=== PATIENT | male | born 1955 | race Caucasian/White ===

== ENCOUNTER 2019-04-06 17:57 | Emergency (ER) | payer MEDICARE ==
[2019-04-06 18:45] LABS: Appearance,Urine Clear (Clear); Bilirubin,Urine Negative (Negative); Blood,Urine Negative (Negative); Color,Urine Yellow; Glucose,Urine (UA) Negative (Negative); Ketones,Urine Trace (Negative); Leukocyte Esterase,Urine Negative (Negative); Nitrite,Urine Negative (Negative); PH, Urine 6.5 (5.0-8.0); Protein,Urine Trace (Negative); Specific Gravity,Urine 1.025 (1.001-1.035); Urobilinogen,Urine <2.0 mg/dL (<2.0)
[2019-04-06] MEDS ORDERED: ACET/COD 300 MG/30 MG STARTER PACK 6 TAB BTL PO STA (18:50)
--- NOTE | 2019-04-06 18:52 | ED ---
Back Pain HPI - General Chief Complaint: Back Pain/Injury Stated Complaint: rib injury Time Seen by Provider: 04/06/19 18:11 Source: patient, RN notes reviewed, old records reviewed Limitations: no limitations - History of Present Illness Initial Comments: Patient is a 64-year-old male presents today for evaluation for concern for left-sided rib pain, worse with taking a deep breath. Patient reports that on Saturday he tripped over a trailer hitch, landing on his left ribs. He reports he heard a crunch. He's had pain with certain movements and taking a deep breath. Patient denies any abdominal pain. Denies any head injury or neck injury. Patient is not on blood thinner. - Related Data Previous Rx's Medication Instructions Recorded HYDROcodone/APAP 5-325MG [[place] 1 tab PO Q4HR PRN 3 Days #18 tab 04/06/19 5-325] Ibuprofen 600 mg PO TID #20 tablet 04/06/19 Allergies Allergy/AdvReac Type Severity Reaction Status Date / Time No Known Allergies Allergy Verified 04/06/19 18:01 Review of Systems ROS Statement: Those systems with pertinent positive or pertinent negative responses have been documented in the HPI. ROS Other: All systems not noted in ROS Statement are negative. Past Medical History Past Medical History: GERD/Reflux, Hypertension History of Any Multi-Drug Resistant Organisms: None Reported Additional Past Surgical History / Comment(s): eye Past Psychological History: No Psychological Hx Reported Smoking Status: Former smoker Past Alcohol Use History: Rare Past Drug Use History: None Reported General Exam - General Exam Comments Initial Comments: 64-year-old male. Alert and oriented 3. No distress. Limitations: no limitations General appearance: alert, in no apparent distress Head exam: Present: atraumatic, normocephalic, normal inspection Eye exam: Present: normal appearance, PERRL, EOMI. Absent: scleral icterus, conjunctival injection, periorbital swelling ENT exam: Present: normal exam, mucous membranes moist Neck exam: Present: normal inspection. Absent: tenderness, meningismus, lymphadenopathy Respiratory exam: Present: normal lung sounds bilaterally. Absent: respiratory distress, wheezes, rales, rhonchi, stridor Cardiovascular Exam: Present: regular rate, normal rhythm, normal heart sounds, other (Patient has tenderness over multiple left lower ribs.). Absent: systolic murmur, diastolic murmur, rubs, gallop, clicks GI/Abdominal exam: Present: soft, normal bowel sounds. Absent: distended, tenderness, guarding, rebound, rigid Extremities exam: Present: normal inspection, full ROM, normal capillary refill. Absent: tenderness, pedal edema, joint swelling, calf tenderness Back exam: Present: normal inspection Neurological exam: Present: alert, oriented X3, CN II-XII intact Psychiatric exam: Present: normal affect, normal mood Course Vital Signs 04/06/19 04/06/19 04/06/19 18:01 19:46 21:44 Temperature 99 F 98.7 F Pulse Rate 18 L 105 H 80 Respiratory 98 H 18 18 Rate Blood Pressure 191/101 152/88 169/95 O2 Sat by Pulse 96 96 96 Oximetry Medical Decision Making - Medical Decision Making 64 year old male with fall on L ribs. Patient CXR shows evidence of rib fractures 5-9, non dispalced. Given pain medication. Discussed concern for further injury from fall, therefore lab work obtaiend and CT scan completed. Labs were reviewed and unremarkable. Patient CT shows no traumatic squella besides non displaced rib fractures. Patient given incentive spirometer. Patient advised close follow up return parameters. DC with pain medication. - Lab Data Result diagrams: 04/06/19 19:15 04/06/19 19:15 Lab Results 04/06/19 04/06/19 04/06/19 Range/Units 18:35 19:15 19:15 WBC 10.7 H (3.8-10.6) k/uL RBC 5.22 (4.30-5.90) m/uL Hgb 16.8 (13.0-17.5) gm/dL Hct 48.4 (39.0-53.0) % MCV 92.7 (80.0-100.0) fL MCH 32.1 (25.0-35.0) pg MCHC 34.6 (31.0-37.0) g/dL RDW 12.8 (11.5-15.5) % Plt Count 197 (150-450) k/uL Neutrophils % 75 % Lymphocytes % 14 % Monocytes % 6 % Eosinophils % 2 % Basophils % 1 % Neutrophils # 8.0 H (1.3-7.7) k/uL Lymphocytes # 1.5 (1.0-4.8) k/uL Monocytes # 0.7 (0-1.0) k/uL Eosinophils # 0.2 (0-0.7) k/uL Basophils # 0.1 (0-0.2) k/uL PT (9.0-12.0) sec INR (<1.2) APTT (22.0-30.0) sec Sodium 139 (137-145) mmol/L Potassium 4.2 (3.5-5.1) mmol/L Chloride 105 (98-107) mmol/L Carbon Dioxide 24 (22-30) mmol/L Anion Gap 10 mmol/L BUN 16 (9-20) mg/dL Creatinine 1.11 (0.66-1.25) mg/dL Est GFR (CKD-EPI)AfAm 80 (>60 ml/min/1.73 sqM) Est GFR (CKD-EPI)NonAf 70 (>60 ml/min/1.73 sqM) Glucose 132 H (74-99) mg/dL Calcium 8.7 (8.4-10.2) mg/dL Total Bilirubin 1.0 (0.2-1.3) mg/dL AST 41 (17-59) U/L ALT 26 (4-49) U/L Alkaline Phosphatase 55 (38-126) U/L Total Protein 7.8 (6.3-8.2) g/dL Albumin 4.7 (3.5-5.0) g/dL Urine Color Yellow Urine Appearance Clear (Clear) Urine pH 6.5 (5.0-8.0) Ur Specific [place] 1.025 (1.001-1.035) Urine Protein Trace H (Negative) Urine Glucose (UA) Negative (Negative) Urine Ketones Trace H (Negative) Urine Blood Negative (Negative) Urine Nitrite Negative (Negative) Urine Bilirubin Negative (Negative) Urine Urobilinogen <2.0 (<2.0) mg/dL Ur Leukocyte Esterase Negative (Negative) 04/06/19 Range/Units 19:15 WBC (3.8-10.6) k/uL RBC (4.30-5.90) m/uL Hgb (13.0-17.5) gm/dL Hct (39.0-53.0) % MCV (80.0-100.0) fL MCH (25.0-35.0) pg MCHC (31.0-37.0) g/dL RDW (11.5-15.5) % Plt Count (150-450) k/uL Neutrophils % % Lymphocytes % % Monocytes % % Eosinophils % % Basophils % % Neutrophils # (1.3-7.7) k/uL Lymphocytes # (1.0-4.8) k/uL Monocytes # (0-1.0) k/uL Eosinophils # (0-0.7) k/uL Basophils # (0-0.2) k/uL PT 10.2 (9.0-12.0) sec INR 0.9 (<1.2) APTT 24.7 (22.0-30.0) sec Sodium (137-145) mmol/L Potassium (3.5-5.1) mmol/L Chloride (98-107) mmol/L Carbon Dioxide (22-30) mmol/L Anion Gap mmol/L BUN (9-20) mg/dL Creatinine (0.66-1.25) mg/dL Est GFR (CKD-EPI)AfAm (>60 ml/min/1.73 sqM) Est GFR (CKD-EPI)NonAf (>60 ml/min/1.73 sqM) Glucose (74-99) mg/dL Calcium (8.4-10.2) mg/dL Total Bilirubin (0.2-1.3) mg/dL AST (17-59) U/L ALT (4-49) U/L Alkaline Phosphatase (38-126) U/L Total Protein (6.3-8.2) g/dL Albumin (3.5-5.0) g/dL Urine Color Urine Appearance (Clear) Urine pH (5.0-8.0) Ur Specific [place] (1.001-1.035) Urine Protein (Negative) Urine Glucose (UA) (Negative) Urine Ketones (Negative) Urine Blood (Negative) Urine Nitrite (Negative) Urine Bilirubin (Negative) Urine Urobilinogen (<2.0) mg/dL Ur Leukocyte Esterase (Negative) - Radiology Data Radiology results: report reviewed There is multiple non displaced rib fracture of 5-9. No pneumothorax. Normal heart. CT Chest abdomen and pelvis shows no traumatic squella, evidence of non displaced rib fracture 6 and 7. Disposition Clinical Impression: Left rib fracture Disposition: HOME SELF-CARE Condition: Good Instructions (If sedation given, give patient instructions): Rib Fracture (ED) Additional Instructions: Patient advised to use incentive spirometry every hour or 2 avoid atelectasis or potentially developing pneumonia. Patient should take the pain medicine as prescribed. Follow-up with your primary care physician. Prescriptions: Ibuprofen 600 mg PO TID #20 tablet HYDROcodone/APAP 5-325MG [[place] 5-325] 1 tab PO Q4HR PRN 3 Days #18 tab PRN Reason: Pain Is patient prescribed a controlled substance at d/c from ED?: Yes If prescribed controlled substance>3 days was MAPS reviewed?: Prescribed <3 Days If opioid is for acute pain is fill amount 7 days or less?: Yes If Rx opioid, was Start Talking consent form obtained?: Yes Referrals: Atiya Hernandez MD [Primary Care Provider] - 1-2 days Time of Disposition: 21:02
--- NOTE | 2019-04-06 18:53 | XR ---
EXAMINATION TYPE: XR ribs LT w pa chest xray DATE OF EXAM: 04/06/2019 COMPARISON: NONE HISTORY: Left rib pain TECHNIQUE: 5 views FINDINGS: Heart and mediastinum are within normal limits. Lungs are clear of infiltrate. There is no pneumothorax. There is minimal linear density left lung base. There are nondisplaced fractures of the left side multiple ribs from 5-9. No significant displacement . IMPRESSION: Numerous posterior lateral left rib fractures. No pneumothorax. Normal heart.
[2019-04-06] MEDS ORDERED: SODIUM CHLORIDE 0.9% 1,000 ML IV ONE (19:06)
[2019-04-06] MEDS ORDERED: SODIUM CHLORIDE 0.9% 1,000 ML IV SCH (19:15)
[2019-04-06] MEDS ORDERED: MORPHINE SULFATE 4 MG/ML SYRINGE IVP STA (19:23)
[2019-04-06 19:26] LABS: Basophils # (A) 0.1 k/uL (0-0.2); Basophils % (A) 1 %; Eosinophils # (A) 0.2 k/uL (0-0.7); Eosinophils % (A) 2 %; HCT 48.4 % (39.0-53.0); HGB 16.8 gm/dL (13.0-17.5); Lymphocytes # (A) 1.5 k/uL (1.0-4.8); Lymphocytes % (A) 14 %; MCH 32.1 pg (25.0-35.0); MCHC 34.6 g/dL (31.0-37.0); MCV 92.7 fL (80.0-100.0); Mean Platelet Volume 7.2; Monocytes # (A) 0.7 k/uL (0-1.0); Monocytes % (A) 6 %; Neutrophils % (A) 75 %; Platelet Count 197 k/uL (150-450); RBC 5.22 m/uL (4.30-5.90); RDW 12.8 % (11.5-15.5); WBC 10.7 k/uL (3.8-10.6)
[2019-04-06 19:36] LABS: Albumin 4.7 g/dL (3.5-5.0); Calcium 8.7 mg/dL (8.4-10.2); Potassium 4.2 mmol/L (3.5-5.1); Total Protein 7.8 g/dL (6.3-8.2)
[2019-04-06 19:46] LABS: INR 0.9 (<1.2); Partial Thromboplastin Time 24.7 sec (22.0-30.0); Prothrombin Time 10.2 sec (9.0-12.0)
[2019-04-06 19:49] VITALS: RESP 18
--- NOTE | 2019-04-06 20:27 | CT ---
EXAMINATION TYPE: CT ChestAbdPelvis w con DATE OF EXAM: 04/06/2019 COMPARISON: None HISTORY: trauma, fall Pain CT DLP: 950 mGycm Automated exposure control for dose reduction was used. CONTRAST: Performed with IV Contrast, patient injected with 100 mL of Isovue 300. Multiple axial sections were obtained from the thoracic inlet to the floor the pelvis with intravenou s contrast. There is no pleural effusion or pneumothorax. There is some patchy atelectasis at the lung bases. Hea rt size is normal. There is no pericardial effusion. There is no mediastinal adenopathy. There are no hilar masses. Liver spleen stomach pancreas gallbladder appear normal. Bile ducts are not dilated. There is no adrenal mass. Kidneys show satisfactory contrast opacification. There is no hydronephrosi s. Ureters are not dilated. There are left-sided renal parapelvic cysts. There is no retroperitoneal adenopathy. Bladder distends smoothly. There is no inguinal hernia. Appendix appears normal. There is no mesenteric edema. There is no ascites or free air. There is no evidence of a bowel obstruction. The thoracic and lumbar vertebra have normal spacing and alignment. Sternum is intact. Bony pelvis is intact. There is no compression fracture. There is no l umbar paraspinal mass. There is 3 mm calculus posterior right kidney. I see no displaced rib fracture . The shoulder joints appear intact. IMPRESSION: Patchy atelectasis at the lung bases. No fracture seen. Nonobstructing right renal calculus. Normal appendix. No evidence of traumatic injury within the abdo men and pelvis.
[2019-04-06 21:45] VITALS: BP 169/95; PULSE 80; TEMP 98.7
== END 2019-04-06 21:45 | disposition home or self-care (01) ==
LOC: EC 17:57
DX: S22.42XA Multiple fractures of ribs, left side, initial encounter for closed fracture (principal); Z87.891 Personal history of nicotine dependence; W01.0XXA Fall on same level from slipping, tripping and stumbling without subsequent striking against object, initial encounter; Y92.009 Unspecified place in unspecified non-institutional (private) residence as the place of occurrence of the external cause
CPT/HCPCS: 99284; 96374; 96361 ×2; 36415; 80053; 85025; 85610; 85730; 81003; 71101; 71260; 74177; J2270; Q9967

== ENCOUNTER 2020-08-28 19:46 | Emergency (ER) | payer MEDICARE ==
[2020-08-28 19:54] VITALS: BP 178/96; PULSE 95; RESP 18; TEMP 98.7
--- NOTE | 2020-08-28 21:01 | ED ---
Back Pain HPI - General Chief Complaint: Back Pain/Injury Stated Complaint: back pain Time Seen by Provider: 08/28/20 20:29 Source: patient Limitations: no limitations - History of Present Illness Initial Comments: 65-year-old male presents to the emergency room with a chief complaint of back pain. States this occurred early this morning when he tripped and hit his back on a boat rail that had a rounded edge. Patient reports she's been having intermittent spasms since the incident. He denies any. Stages throughout the rest of the body. States the pain is reproducible to palpation but it is mild. He denies taking medication to relieve the symptoms. - Related Data Previous Rx's Medication Instructions Recorded HYDROcodone/APAP 5-325MG [[place] 1 tab PO Q4HR PRN 3 Days #18 tab 04/06/19 5-325] Ibuprofen 600 mg PO TID #20 tablet 04/06/19 Cyclobenzaprine [Flexeril] 5 mg PO TID PRN #15 tablet 08/28/20 Allergies Allergy/AdvReac Type Severity Reaction Status Date / Time tobramycin Allergy Swelling Verified 08/28/20 19:54 Review of Systems ROS Statement: Those systems with pertinent positive or pertinent negative responses have been documented in the HPI. ROS Other: All systems not noted in ROS Statement are negative. Past Medical History Past Medical History: GERD/Reflux, Hypertension History of Any Multi-Drug Resistant Organisms: None Reported Past Surgical History: Tonsillectomy Additional Past Surgical History / Comment(s): eye Past Psychological History: No Psychological Hx Reported Smoking Status: Never smoker Past Alcohol Use History: Rare Past Drug Use History: None Reported General Exam Limitations: no limitations General appearance: alert, in no apparent distress Head exam: Present: atraumatic, normocephalic, normal inspection Eye exam: Present: normal appearance, PERRL, EOMI Pupils: Present: normal accommodation ENT exam: Present: normal exam, normal oropharynx, mucous membranes moist Neck exam: Present: normal inspection, full ROM. Absent: tenderness Respiratory exam: Present: normal lung sounds bilaterally. Absent: respiratory distress Cardiovascular Exam: Present: regular rate, normal rhythm, normal heart sounds Extremities exam: Present: normal inspection, full ROM Back exam: Present: normal inspection, full ROM, tenderness, muscle spasm, paraspinal tenderness (Tenderness in the bilateral paraspinal region of the mid thoracic spine). Absent: vertebral tenderness Neurological exam: Present: alert, oriented X3 Psychiatric exam: Present: normal affect, normal mood Skin exam: Present: warm, dry, intact, normal color Course Vital Signs 08/28/20 19:48 Temperature 98.7 F Pulse Rate 95 Respiratory 18 Rate Blood Pressure 178/96 O2 Sat by Pulse 98 Oximetry Medical Decision Making - Medical Decision Making 65-year-old male presents to emergency Department with a chief complaint of back pain. On physical examination, tenderness of bilateral paraspinal region of the mid thoracic spine. Mild tenderness only. X-ray of the thoracic spine reveals some spondylitic changes but no other acute findings. Patient will be discharged with Flexeril and he was advised about the possible side effects of medication. Return parameters were thoroughly discussed with patient is understanding and agreeable. Case discussed with Disposition Clinical Impression: Fall, Back pain Disposition: HOME SELF-CARE Condition: Stable Instructions (If sedation given, give patient instructions): Acute Low Back Pain (ED) Additional Instructions: Please return to the Emergency Department if symptoms worsen or any other concerns. Prescriptions: Cyclobenzaprine [Flexeril] 5 mg PO TID PRN #15 tablet PRN Reason: Muscle Spasm Is patient prescribed a controlled substance at d/c from ED?: No Referrals: Catherine Loza DO [Primary Care Provider] - 1-2 days Time of Disposition: 21:22
--- NOTE | 2020-08-28 21:04 | XR ---
EXAMINATION TYPE: XR thoracic spine complete DATE OF EXAM: 08/28/2020 COMPARISON: NONE HISTORY: Back pain TECHNIQUE: 3 views FINDINGS: The thoracic vertebra have normal alignment. Posterior elements are intact. There is no com pression fracture. I see no bony destructive process. There is degenerative spurring anteriorly throu ghout the thoracic spine. IMPRESSION: Mild multilevel spondylotic changes. No fracture seen.
[2020-08-28] MEDS ORDERED: CYCLOBENZAPRINE 10MG STARTER 3 TAB BTL PO STA (21:27)
== END 2020-08-28 21:43 | disposition home or self-care (01) ==
LOC: EC 19:46
DX: M54.6 Pain in thoracic spine (principal); K21.9 Gastro-esophageal reflux disease without esophagitis; I10 Essential (primary) hypertension; W01.198A Fall on same level from slipping, tripping and stumbling with subsequent striking against other object, initial encounter
CPT/HCPCS: 72072; 99284

== ENCOUNTER 2024-01-23 18:45 | Inpatient (IN) | payer MEDICARE ==
--- NOTE | 2024-01-23 19:19 | ED ---
Neuro HPI - General Source: patient, family Mode of arrival: wheelchair Limitations: no limitations - History of Present Illness Is the patient presenting with stroke symptoms?: Yes Last Known Well Date: 01/23/24 Last Known Well Time: 07:00 Onset/Timin -: hour(s) Last Observed Normal: 07:00 Location: right face, right arm, right leg History of same: No Place: home <Akin Saenz - Last Filed: 01/23/24 19:18> - General Source: RN notes reviewed, old records reviewed <Humberto Hargrove - Last Filed: 01/23/24 20:54> - General Chief Complaint: Neuro Symptoms/Deficit Stated Complaint: stroke symptoms Time Seen by Provider: 01/23/24 18:54 - History of Present Illness Initial Comments: Quick note: This is a 68-year-old male presenting with for right upper and lower extremity numbness and weakness x 12 hours. Patient states symptoms have been ongoing since 7 AM this morning. Patient also endorses some alteration in cognition. Patient denies history of CVA or blood clots. Patient denies use of aspirin, anticoagulants or antiplatelet medications. (Akin Saenz) This is a 68-year-old male who presents to the emergency department because ever since he woke up this morning he has had decreased sensation on the right upper and lower extremity. Patient also states his thoughts were not that clear today and he also has noted at times having a hard time finding words. Patient also complained of some right peripheral vision loss that is very peripheral and is vision. Patient states since he has been here some of the symptoms have improved. Patient states earlier today he found it very hard to coordinate writing and using a utensil with his right hand. Patient states the last time he was normal was 9 PM last night patient denies chest pain or difficulty breathing. Patient states he does have a history of high blood pressure he does not smoke is had no heart disease or lung disease. (Humberto Hargrove) - Related Data Home Medications: Previous Rx's Medication Instructions Recorded HYDROcodone/APAP 5-325MG [[place] 1 tab PO Q4HR PRN 3 Days #18 tab 04/06/19 5-325] Ibuprofen 600 mg PO TID #20 tablet 04/06/19 Cyclobenzaprine [Flexeril] 5 mg PO TID PRN #15 tablet 08/28/20 Allergies/Adverse Reactions: Allergies Allergy/AdvReac Type Severity Reaction Status Date / Time tobramycin Allergy Swelling Verified 01/23/24 18:53 Review of Systems ROS Other: All systems not noted in ROS Statement are negative. <Akin Saenz - Last Filed: 01/23/24 19:18> ROS Other: All systems not noted in ROS Statement are negative. <Humberto Hargrove - Last Filed: 01/23/24 20:54> ROS Statement: Those systems with pertinent positive or pertinent negative responses have been documented in the HPI. General Exam Limitations: no limitations <DanyAkin - Last Filed: 01/23/24 19:18> <Humberto Hargrove - Last Filed: 01/23/24 20:54> - General Exam Comments Initial Comments: Visual Physical Exam Vital signs reviewed General: Well-appearing, nontoxic, no acute distress. Patient is seated in wheelchair Head: Normocephalic, atraumatic Eyes: PERRLA, EOMI ENT: Airway patent Chest: Nonlabored breathing Skin: No visual rash, normal skin tone Neuro: Alert and oriented 3 Musculoskeletal: No gross abnormalities (Akin Saenz) GENERAL: Patient is well-developed and well-nourished. Patient is nontoxic and well- hydrated and is in no acute distress. ENT: Neck is soft and supple. No significant lymphadenopathy is noted. Oropharynx is clear. Moist mucous membranes. Neck has full range of motion without eliciting any pain. EYES: The sclera were anicteric and conjunctiva were pink and moist. Extraocular movements were intact and pupils were equal round and reactive to light. Eyelids were unremarkable. PULMONARY: Unlabored respirations. Good breath sounds bilaterally. No audible rales rhonchi or wheezing was noted. CARDIOVASCULAR: There is a regular rate and rhythm without any murmurs gallops or rubs. Femoral pulses are equal bilaterally ABDOMEN: Soft and nontender with normal bowel sounds. No palpable organomegaly was noted. There is no palpable pulsatile mass. SKIN: Skin is clear with no lesions or rashes and otherwise unremarkable. NEUROLOGIC: Patient is alert and oriented x3. Cranial nerves II through XII are grossly intact. Patient has decreased sensation in the upper extremity and leg. Patient has no cerebellar deficit and has no drift he also has no apparent weakness and I can appreciate this point in time. Patient does have some right peripheral vision loss. MUSCULOSKELETAL: Normal extremities with adequate strength and full range of motion. LYMPHATICS: No significant lymphadenopathy is noted PSYCHIATRIC: Normal psychiatric evaluation. (Humberto Hargrove) Stroke MDM <Akin Saenz - Last Filed: 01/23/24 19:18> - Lab Data Result diagrams: 01/23/24 19:34 01/23/24 19:34 <Humberto Hargrove - Last Filed: 01/23/24 20:54> - Lab Data Lab Results 01/23/24 01/23/24 01/23/24 Range/Units 19:34 19:34 19:34 WBC 9.9 (3.8-10.6) k/uL RBC 5.38 (4.30-5.90) m/uL Hgb 15.4 (13.0-17.5) gm/dL Hct 47.6 (39.0-53.0) % MCV 88.6 (80.0-100.0) fL MCH 28.7 (25.0-35.0) pg MCHC 32.4 (31.0-37.0) g/dL RDW 13.7 (11.5-15.5) % Plt Count 210 (150-450) k/uL MPV 7.2 Neutrophils % 69 % Lymphocytes % 20 % Monocytes % 6 % Eosinophils % 3 % Basophils % 0 % Neutrophils # 6.8 (1.3-7.7) k/uL Lymphocytes # 2.0 (1.0-4.8) k/uL Monocytes # 0.6 (0-1.0) k/uL Eosinophils # 0.3 (0-0.7) k/uL Basophils # 0.0 (0-0.2) k/uL PT 11.8 (10.0-12.5) sec INR 1.1 (<1.2) APTT 24.8 (22.0-30.0) sec Sodium 140 (137-145) mmol/L Potassium 4.0 (3.5-5.1) mmol/L Chloride 103 (98-107) mmol/L Carbon Dioxide 27 (22-30) mmol/L Anion Gap 10 mmol/L BUN 23 H (9-20) mg/dL Creatinine 1.54 H (0.66-1.25) mg/dL Est GFR (CKD-EPI)AfAm 52 (>60 ml/min/1.73 sqM) Est GFR (CKD-EPI)NonAf 45 (>60 ml/min/1.73 sqM) Glucose 117 H (74-99) mg/dL POC Glucose (mg/dL) (70-110) mg/dL POC Glu Marketing Content Coordinator ID Calcium 9.1 (8.4-10.2) mg/dL Total Bilirubin 0.5 (0.2-1.3) mg/dL AST 34 (17-59) U/L ALT 34 (4-49) U/L Alkaline Phosphatase 42 (38-126) U/L Troponin I (0.000-0.034) ng/mL Total Protein 7.6 (6.3-8.2) g/dL Albumin 4.5 (3.5-5.0) g/dL 01/23/24 01/23/24 Range/Units 19:34 19:37 WBC (3.8-10.6) k/uL RBC (4.30-5.90) m/uL Hgb (13.0-17.5) gm/dL Hct (39.0-53.0) % MCV (80.0-100.0) fL MCH (25.0-35.0) pg MCHC (31.0-37.0) g/dL RDW (11.5-15.5) % Plt Count (150-450) k/uL MPV Neutrophils % % Lymphocytes % % Monocytes % % Eosinophils % % Basophils % % Neutrophils # (1.3-7.7) k/uL Lymphocytes # (1.0-4.8) k/uL Monocytes # (0-1.0) k/uL Eosinophils # (0-0.7) k/uL Basophils # (0-0.2) k/uL PT (10.0-12.5) sec INR (<1.2) APTT (22.0-30.0) sec Sodium (137-145) mmol/L Potassium (3.5-5.1) mmol/L Chloride (98-107) mmol/L Carbon Dioxide (22-30) mmol/L Anion Gap mmol/L BUN (9-20) mg/dL Creatinine (0.66-1.25) mg/dL Est GFR (CKD-EPI)AfAm (>60 ml/min/1.73 sqM) Est GFR (CKD-EPI)NonAf (>60 ml/min/1.73 sqM) Glucose (74-99) mg/dL POC Glucose (mg/dL) 111 H (70-110) mg/dL POC Glu Marketing Content Coordinator CASSANDRA Osman Calcium (8.4-10.2) mg/dL Total Bilirubin (0.2-1.3) mg/dL AST (17-59) U/L ALT (4-49) U/L Alkaline Phosphatase (38-126) U/L Troponin I 0.013 (0.000-0.034) ng/mL Total Protein (6.3-8.2) g/dL Albumin (3.5-5.0) g/dL EKG is interpreted by myself but EKG shows sinus rhythm at 73 bpm. Is an 74 QRS is 94 QT interval 354 QTc is 379. Patient's EKG shows no ST segment elevation or depression. Patient does have some T wave inversions in leads III and aVF. Patient also has Q waves in 3 and aVF Was pt. sent in by a medical professional or institution (, PA, CHEMICAL PROCESSING EQUIPMENT REPAIRER, urgent care, hospital, or halfway...) When possible be specific @ -No Did you speak to anyone other than the patient for history (EMS, parent, family, police, friend...)? What history was obtained from this source @ -No Did you review nursing and triage notes (agree or disagree)? Why? @ -I reviewed and agree with nursing and triage notes Were old charts reviewed (outside hosp., previous admission, EMS record, old EKG, old radiological studies, urgent care reports/EKG's, halfway records)? Report findings @ -No old charts were reviewed Differential Diagnosis? @ -Differential CVA Ischemic stroke, hemorrhagic stroke, brain tumor, atypical migraine, Wernicke's encephalopathy, seizure, multiple sclerosis, meningitis, encephalitis, hypoglycemia, Guillain-Helms, electrolytes disturbance, myasthenia gravis.... This is not meant to be an all-inclusive list EKG interpreted by me (3pts min.). @ -As above X-rays interpreted by me (1pt min.). @ -None done CT interpreted by me (1pt min.). @ -CT of the brain shows no acute abnormality. CT angiogram shows no acute abnormality U/S interpreted by me (1pt. min.). @ -None done What testing was considered but not performed or refused? (CT, X-rays, U/S, labs)? Why? @ -None What meds were considered but not given or refused? Why? @ -None Did you discuss the management of the patient with other professionals (professionals i.e. DrMarlene, PA, CHEMICAL PROCESSING EQUIPMENT REPAIRER, lab, RT, psych nurse, social and political studies professor, inside horticultural specialty grower, teacher, chief clinical officer, immigration case manager)? Give summary @ -I spoke with [facility] and they agreed admit the patient. I also spoke with Dr. Valadez is a neuro interventionalists and he agrees the patient should be admitted for further workup and to see a neurologist. Was smoking cessation discussed for >3mins.? @ -No Was critical care preformed (if so, how long)? @ -No Were there social determinants of health that impacted care today? How? (Homelessness, low income, unemployed, alcoholism, drug addiction, transportation, low edu. Level, literacy, decrease access to med. care, care home, rehab)? @ -No Was there de-escalation of care discussed even if they declined (Discuss DNR or withdrawal of care, Hospice)? DNR status @ -No What co-morbidities impacted this encounter? (DM, HTN, Smoking, COPD, CAD, Cancer, CVA, ARF, Chemo, Hep., AIDS, mental health diagnosis, sleep apnea, morbid obesity)? @ -None Was patient admitted / discharged? Hospital course, mention meds given and route, prescriptions, significant lab abnormalities, going to OR and other pe rtinent info. @ -Patient still had some right-sided decrease sensation as well as some peripheral vision loss in the right eye. I admitting the patient to [facility] and I will consult neurology. Undiagnosed new problem with uncertain prognosis? @ -No Drug Therapy requiring intensive monitoring for toxicity (Heparin, Nitro, Insulin, Cardizem)? @ -No Were any procedures done? @ -No Diagnosis/symptom? @ -CVA Acute, or Chronic, or Acute on Chronic? @ -Acute Uncomplicated (without systemic symptoms) or Complicated (systemic symptoms)? @ -Complicated Side effects of treatment? @ -No Exacerbation, Progression, or Severe Exacerbation? @ -No Poses a threat to life or bodily function? How? (Chest pain, [place], SC, pneumonia, PE, COPD, DKA, ARF, appy, cholecystitis, CVA, Diverticulitis, Homicidal, Suicidal, threat to staff... and all critical care pts) @ -Yes this can lead to further stroke and significant morbidity or mortality (Humberto Hargrove) - Medical Decision Making I completed the quick note portion of this chart signed OTF Peres (Akin Saenz) Past Medical History Past Medical History: GERD/Reflux, Hypertension History of Any Multi-Drug Resistant Organisms: None Reported Past Surgical History: Tonsillectomy Additional Past Surgical History / Comment(s): eye Past Psychological History: No Psychological Hx Reported Smoking Status: Former smoker Past Alcohol Use History: Occasional Past Drug Use History: None Reported <Akin Saenz - Last Filed: 01/23/24 19:18> Course Vital Signs 01/23/24 01/23/24 01/23/24 18:53 20:09 20:36 Temperature 98.9 F Pulse Rate 86 77 84 Respiratory 18 18 18 Rate Blood Pressure 172/97 172/94 159/86 O2 Sat by Pulse 96 98 97 Oximetry Disposition <Akin Saenz - Last Filed: 01/23/24 19:18> Time of Disposition: 20:54 <Humberto Hargrove - Last Filed: 01/23/24 20:54> Clinical Impression: Cerebrovascular accident (CVA) Disposition: ADMITTED IP TO THIS HOSP Referrals: Pedro Barney MD [Primary Care Provider] - 1-2 days
[2024-01-23 19:38] LABS: Glucose,Whole Blood 111 mg/dL (70-110)
[2024-01-23 19:54] LABS: Basophils % (A) 0 %; Eosinophils # (A) 0.3 k/uL (0-0.7); Eosinophils % (A) 3 %; HCT 47.6 % (39.0-53.0); HGB 15.4 gm/dL (13.0-17.5); Lymphocytes % (A) 20 %; MCH 28.7 pg (25.0-35.0); MCHC 32.4 g/dL (31.0-37.0); MCV 88.6 fL (80.0-100.0); Mean Platelet Volume 7.2; Monocytes # (A) 0.6 k/uL (0-1.0); Monocytes % (A) 6 %; Neutrophils # (A) 6.8 k/uL (1.3-7.7); Neutrophils % (A) 69 %; Platelet Count 210 k/uL (150-450); RBC 5.38 m/uL (4.30-5.90); RDW 13.7 % (11.5-15.5); WBC 9.9 k/uL (3.8-10.6)
--- NOTE | 2024-01-23 19:55 | CT ---
EXAMINATION TYPE: CODE STROKE: CT brain wo contr DATE OF EXAM: 01/23/2024 COMPARISON: None INDICATION: Code Stroke. Pt off balance, states R side is a little numb including R arm, R cheek, R l eg. Denies slurred speech, headache. Sx onset around 4690-9281. Also c/o gi asst strength in R hand b eing weak. No prior. ABC DLP: 1158.7 mGycm, Automated exposure control for dose reduction was used. CONTRAST: None CT of the brain is performed utilizing 3 mm thick sections through the posterior fossa and 3 mm thick sections through the remaining calvarium. Study is performed within 24 hours of arrival to the hosp ital. No abnormal hyperdensity is present to suggest an acute intracranial hemorrhage. No mass lesion is evident. No acute infarcts are evident. Ventricles and sulci are appropriate for the patient age. Paranasal sinuses and mastoid air cells within the [id number] are clear. IMPRESSION: 1. No acute intracranial process. Follow up MRI can be performed as clinically indicated. [facility], Workstation: [facility], 01/23/2024 7:53 PM
[2024-01-23 20:14] LABS: ALT 34 U/L (4-49); AST 34 U/L (17-59); African American GFR (CKD) 52 (>60 ml/min/1.73 sqM); Albumin 4.5 g/dL (3.5-5.0); Alkaline Phosphatase 42 U/L (38-126); Anion Gap 10 mmol/L; Blood Urea Nitrogen 23 mg/dL (9-20); Calcium 9.1 mg/dL (8.4-10.2); Carbon Dioxide 27 mmol/L (22-30); Chloride 103 mmol/L (98-107); Glucose 117 mg/dL (74-99); INR 1.1 (<1.2); Non-African American GFR(CKD) 45 (>60 ml/min/1.73 sqM); Partial Thromboplastin Time 24.8 sec (22.0-30.0); Prothrombin Time 11.8 sec (10.0-12.5); Sodium 140 mmol/L (137-145); Total Bilirubin 0.5 mg/dL (0.2-1.3); Total Protein 7.6 g/dL (6.3-8.2)
--- NOTE | 2024-01-23 20:22 | CT ---
EXAMINATION TYPE: CODE STROKE: CTA head neck DATE OF EXAM: 01/23/2024 HISTORY: Code Stroke. Pt off balance, states R side is a little numb including R arm, R cheek, R leg. Denies slurred speech, headache. Sx onset around 2296-0967. Also c/o line maintainer section strength in R hand bein g weak. No prior. ABC COMPARISON: None CT DLP: 540.7 mGycm. Automated Exposure Control for Dose Reduction was Utilized. TECHNIQUE: CTA scan of the neck is performed with IV Contrast, patient injected with 65ml mL of Isov ue 370, axial images are obtained, coronal and sagittal reformatted images are reviewed. Three-D humberto nstructed images are created on an independent workstation and reviewed. Source images are reviewed. FINDINGS: Carotid/Vascular Structures: There is a 3 vessel arch. Common carotid arteries bifurcate into internal and external carotid arteries without significant patrice w limiting stenosis. There is tortuosity of the internal carotid arteries. Vertebral arteries are codominant. Internal carotid arteries and vertebral arteries are patent to the skull base. Cervical of [place]: Vertebral basilar system appears normal. Posterior cerebral vasculature is unrema rkable. Internal carotid arteries bifurcate normally into A1 and M1 segments. A2 segments are normal. The anterior communicating artery is not clearly patent. The right posterior communicating artery is absent. The left posterior communicating artery is absent. Other: Degenerative disc changes throughout the cervical spine IMPRESSION: 1. No flow-limiting stenosis bilateral carotid bifurcations. 2. Normal variation in the [place] of [place] NASCET criteria was used in interpretation of this exam? [facility], Workstation: [facility], 01/23/2024 8:19 PM
[2024-01-23] MEDS: ASPIRIN 325 MG TAB PO STA (21:21)
[2024-01-24] MEDS: ASPIRIN 325 MG TAB PO SCH (08:45)
[2024-01-24 10:41] LABS: Chol/HDL Ratio 3.36 Ratio; LDL Cholesterol,Calculated 73.5 mg/dL (0.0-131.0)
--- NOTE | 2024-01-24 14:44 | P.HPIM ---
History of Present Illness H&P Date: 01/24/24 History of present illness; patient 68-year-old gentleman with past medical history significant for hypertension who presented to the ER because of right- sided weakness. Patient stated that the symptoms started at 7 AM in the morning, patient noticed that his right arm and leg were weak, patient was having numbness of the right side. Patient was having a hard time finding words, there was no slurred speech. Patient felt as if his cognition was also affected. There was no jerking movement of any extremity. Patient was also complaining of loss of peripheral vision. Patient hard time gripping with his right hand. Some of the symptoms improved by the time patient came to the ER. Initial lab work done in the ER showed WBC 9.9, hemoglobin 15.4, platelet count 210, sodium 140, potassium 4, BUN 23, creatinine 1.54, glucose 117, EKG done in the ER showed heart rate of 73, no ST segment elevation or depression seen, no T-wave inversions seen. CT head done showed no acute intracranial process CTA head and neck done showed no significant stenosis, aneurysm or thrombus in the intracranial circulation Patient admitted to internal medicine service REVIEW OF SYSTEMS: CONSTITUTIONAL: No fever, no malaise, no fatigue. HEENT: No recent visual problems or hearing problems. Denied any sore throat. CARDIOVASCULAR: No chest pain, orthopnea, PND, no palpitations, no syncope. PULMONARY: No shortness of breath, no cough, no hemoptysis. GASTROINTESTINAL: No diarrhea, no nausea, no vomiting, no abdominal pain. NEUROLOGICAL: As mentioned above HEMATOLOGICAL: Denies any bleeding or petechiae. GENITOURINARY: Denies any burning micturition, frequency, or urgency. MUSCULOSKELETAL/RHEUMATOLOGICAL: Denies any joint pain, swelling, or any muscle pain. ENDOCRINE: Denies any polyuria or polydipsia. The rest of the 14-point review of systems is negative. PHYSICAL EXAMINATION: GENERAL: The patient is alert and oriented x3, not in any acute distress. Well developed, well nourished. HEENT: Pupils are round and equally reacting to light. EOMI. No scleral icterus. No conjunctival pallor. Normocephalic, atraumatic. No pharyngeal erythema. No thyromegaly. CARDIOVASCULAR: S1 and S2 present. No murmurs, rubs, or gallops. PULMONARY: Chest is clear to auscultation, no wheezing or crackles. ABDOMEN: Soft, nontender, nondistended, normoactive bowel sounds. No palpable organomegaly. MUSCULOSKELETAL: No joint swelling or deformity. EXTREMITIES: No cyanosis, clubbing, or pedal edema. NEUROLOGICAL: Muscle strength is 4 x 5 in right upper extremity and 4 x 5 in right lower extremity, mostly 5 x 5 in left side. Cranial nerves II to 12 intact SKIN: No rashes. Assessment and plan Acute CVA Hypertension Monitor vital signs Monitor CBC Monitor CMP Continue telemetry monitoring Ordered neurochecks Ordered aspirin and Lipitor Ordered HbA1c level, TSH, lipid panel Ordered 2D echo Ordered MRI brain Consult neurology Labs and medication were reviewed.. Continue same treatment. Continue with symptomatic treatment. Resume home medication. Monitor labs and vitals. DVT and GI prophylaxis. Further recommendations as per clinical course of the patient Dictation was produced using [employer] dictation software. please excuse any grammatical, word or spelling errors. Past Medical History Past Medical History: GERD/Reflux, Hypertension History of Any Multi-Drug Resistant Organisms: None Reported Past Surgical History: Tonsillectomy Additional Past Surgical History / Comment(s): eye Past Psychological History: No Psychological Hx Reported Smoking Status: Former smoker Past Alcohol Use History: Occasional Past Drug Use History: None Reported Medications and Allergies Home Medications Medication Instructions Recorded Confirmed Type Ascorbic Acid [Vitamin C] 1,000 mg PO DAILY 01/24/24 01/24/24 History Calcium Carbonate [Calcium] 600 mg PO DAILY 01/24/24 01/24/24 History Cholecalciferol [Vitamin D3 (25 25 mcg PO DAILY 01/24/24 01/24/24 History Mcg = 1000 Iu)] Losartan/Hydrochlorothiazide 1 tab PO DAILY 01/24/24 01/24/24 History [Hyzaar 100-25 Tablet] Multivitamins, Thera [Multivitamin 1 tab PO DAILY 01/24/24 01/24/24 History (formulary)] Omeprazole 5 mg PO DAILY 01/24/24 01/24/24 History Testosterone (Bulk) Powder Compound 2 ml TOPICAL Q48H 01/24/24 01/24/24 History Allergies Allergy/AdvReac Type Severity Reaction Status Date / Time tobramycin Allergy Swelling Verified 01/24/24 07:43 Physical Exam Vitals: Vital Signs Temp Pulse Resp BP Pulse Ox 01/24/24 07:38 78 18 154/93 98 01/24/24 05:00 67 16 163/99 98 01/24/24 02:00 86 18 161/86 97 01/24/24 00:06 88 18 139/69 96 01/23/24 21:05 84 18 166/96 96 01/23/24 20:36 84 18 159/86 97 01/23/24 20:09 77 18 172/94 98 01/23/24 18:53 98.9 F 86 18 172/97 96 Intake and Output 01/23/24 01/24/24 01/24/24 22:59 06:59 14:59 Other: Weight 92.986 kg Results CBC & Chem 7: 01/23/24 19:34 01/23/24 19:34 Labs: Abnormal Lab Results - Last 24 Hours (Table) 01/23/24 01/23/24 Range/Units 19:34 19:37 BUN 23 H (9-20) mg/dL Creatinine 1.54 H (0.66-1.25) mg/dL Glucose 117 H (74-99) mg/dL POC Glucose (mg/dL) 111 H (70-110) mg/dL
--- NOTE | 2024-01-24 15:59 | MR ---
EXAMINATION TYPE: MR brain wo con DATE OF EXAM: 01/24/2024 3:52 PM COMPARISON: 01/23/2024. CLINICAL INDICATION: Male, 68 years old with history of Right-sided weakness; PHH, right sided weakne ss. TECHNIQUE: Multi planar, multi sequence imaging was performed through the brain including: T1, T2, In version recovery, Diffusion weighted imaging, and gradient echo imaging. No gadolinium was given. FINDINGS: Restricted diffusion within the left thalamus. The gordon-white junctions, ventricular system, basal cisterns appear unremarkable. Scattered foci of high T2 signal intensity are seen within the periventricular white matter. Midline structures show n o abnormality. The susceptibility weighted images do not reveal any evidence for micro-hemorrhage. The bone marrow signal is within normal limits. Paranasal sinuses and mastoid air cells: No significant paranasal sinus disease. Visualized orbits: Orbital contents are intact. IMPRESSION: 1. Acute/subacute CVA involving the left thalamus. 2. Nonspecific white matter changes, likely secondary to small vessel ischemic disease. [facility], , 01/24/2024 3:57 PM
[2024-01-24] MEDS: CLOPIDOGREL 75 MG TAB PO SCH (17:45)
[2024-01-24] MEDS: ATORVASTATIN 20 MG TAB PO SCH (19:53)
--- NOTE | 2024-01-24 23:21 | P.CNNES ---
History of Present Illness Consult date: 01/24/24 Requesting physician: Humberto Hargrove Reason for Consult: CVA History of Present Illness: Patient is a 68-year-old right-handed male with history of hypertension, came to the hospital yesterday at 6:45 PM strokelike symptoms. Patient's was also present, and they informed that patient yesterday woke up at 7 AM with numbness of the right side of the body including face arm and leg. Initially he thought that the symptoms will go away. As the day progressed, the symptoms progressed and became more intense. He denied any weakness on the right side. He denied any obvious weakness, but he was having difficulty using the fork, could not write as well or hold the pen with his right hand. There was no facial droop, or slurred speech. He also noticed some visual disturbance with peripheral vision loss on the right side. He denied any chest pain, shortness of breath, nausea vomiting. As the symptoms persisted, he came to the ER. His last known well was about 9 PM the night prior before he went to bed. Vital signs on arrival blood pressure 172/97, pulse rate 86 temperature 98.9. Blood test shows normal CBC PT PTT, normal electrolytes, BUN 23 creatinine 1.54. Hepatic panel is normal troponin negative. CT head revealed no acute intracranial process. I personally reviewed CT head, agree with the findings. EKG showed sinus rhythm. Home medications include vitamin D, calcium, omeprazole, losartan/HCTZ and testosterone. Patient does not take any antiplatelet medication. Patient denies any previous history of strokes or TIA. He has history of hypertension, but no diabetes. He smoked for 25 years, quit 30 years ago. He drinks about 1-2 beers, 2-3 times a week. Review of Systems All pertinent positive and negative uses suspension the HPI. Otherwise unremarkable. Past Medical History Past Medical History: GERD/Reflux, Hypertension History of Any Multi-Drug Resistant Organisms: None Reported Past Surgical History: Tonsillectomy Additional Past Surgical History / Comment(s): eye Past Psychological History: No Psychological Hx Reported Smoking Status: Former smoker Past Alcohol Use History: Occasional Past Drug Use History: None Reported Medications and Allergies Home Medications Medication Instructions Recorded Confirmed Type Ascorbic Acid [Vitamin C] 1,000 mg PO DAILY 01/24/24 01/24/24 History Calcium Carbonate [Calcium] 600 mg PO DAILY 01/24/24 01/24/24 History Cholecalciferol [Vitamin D3 (25 25 mcg PO DAILY 01/24/24 01/24/24 History Mcg = 1000 Iu)] Losartan/Hydrochlorothiazide 1 tab PO DAILY 01/24/24 01/24/24 History [Hyzaar 100-25 Tablet] Multivitamins, Thera [Multivitamin 1 tab PO DAILY 01/24/24 01/24/24 History (formulary)] Omeprazole 5 mg PO DAILY 01/24/24 01/24/24 History Testosterone (Bulk) Powder Compound 2 ml TOPICAL Q48H 01/24/24 01/24/24 History Allergies Allergy/AdvReac Type Severity Reaction Status Date / Time tobramycin Allergy Swelling Verified 01/24/24 07:43 Physical Examination - Vital Signs Vital Signs: Vital Signs Temp Pulse Resp BP Pulse Ox 01/24/24 11:22 78 18 163/96 98 01/24/24 10:49 98 18 163/96 98 01/24/24 10:05 78 18 163/96 01/24/24 07:38 78 18 154/93 98 01/24/24 05:00 67 16 163/99 98 01/24/24 02:00 86 18 161/86 97 01/24/24 00:06 88 18 139/69 96 01/23/24 21:05 84 18 166/96 96 01/23/24 20:36 84 18 159/86 97 01/23/24 20:09 77 18 172/94 98 01/23/24 18:53 98.9 F 86 18 172/97 96 Intake and Output 01/23/24 01/24/24 01/24/24 22:59 06:59 14:59 Other: Weight 92.986 kg Patient is an elderly male, very pleasant, in no acute distress. Patient is alert awake oriented to time place and person. Speech and language functions are normal. Patient can name and repeat very well. No aphasia or dysarthria. Attention, concentration and fund of knowledge is adequate. On cranial nerve examination, pupils are equal, round and reacting to light, visual navas are full on confrontation, with no neglect on double simultaneous stimulation. Extraocular muscles are intact with no nystagmus. Face is symmetric, tongue protrudes to the midline. Palatal elevation and sensation normal, hearing and shoulder shrug normal, facial sensation normal. On muscle strength testing, there is mild right pronator drift about 10-15 and the strength is normal in arms and legs distally and proximally. Deep tendon reflexes are symmetric 1+ all over and plantars downgoing. Sensory to touch and temperature is decreased in the right of the body including face arm and leg. Cerebellar function showed ataxia for [id number] testing in the right upper limb, but normal on the left. No dysdiadochokinesia. No ataxia for heel-to-sh in testing on either side. Tone and bulk of muscles normal. Gait deferred.. On general examination, there is no carotid bruit or murmur, S1-S2 audible. Chest is clear on consultation. Abdomen is soft nontender. No organomegaly, bowel sounds present. Peripheral pulses are present. No peripheral edema. Results - Laboratory Findings CBC and BMP: 01/23/24 19:34 01/23/24 19:34 Abnormal Lab Findings: Abnormal Labs 01/23/24 01/23/24 19:34 19:37 BUN 23 H Creatinine 1.54 H Glucose 117 H POC Glucose (mg/dL) 111 H Assessment and Plan Assessment: * Acute ischemic stroke left thalamic region and left optic radiations. Event appears embolic in nature. Rule out cardiac source. * Hypertension, uncontrolled * X tobacco use Plan: Patient has presented with acute ischemic stroke. Patient's current NIH stroke scale is 3. Patient was not a candidate for TNK, because patient came outside the window for thrombolysis. No LVO. MRI of the brain without contrast, revealed acute/subacute CVA involving the left thalamus. On my review, there is another area of acute ischemic infarction in the left medial temporal lobe, involving the left optic radiation as well. Will discuss with the radiologist. 2-D echo with bubble study to rule out PFO CTA head and neck showed: No flow-limiting stenosis bilateral carotid bifurcations. Normal variation in the [place]. Fasting a.m. lipid panel with cholesterol 147, LDL 73, HDL 43 and triglycerides 149. We will start Lipitor 20 mg daily to target LDL < 70. Hemoglobin A1c 6.0 Permissive hypertension for next 24-48 hours. Patient was not taking any antiplatelet medication at home. Patient started on aspirin 325 mg in the ER. We will also add Plavix 75 mg daily for 21 days. Neuro checks every 2 hours. Telemetry monitoring rule out any arrhythmia Patient may need 30 day event monitoring rule out PAF. PT, OT, speech therapy DVT prophylaxis: Heparin 5000 units subcu every 8 hours Neurology will continue to follow. Thank you for the consult. Time with Patient: Greater than 30
[2024-01-25 06:34] LABS: Basophils % (A) 1 %; Eosinophils # (A) 0.4 k/uL (0-0.7); Eosinophils % (A) 5 %; HCT 49.3 % (39.0-53.0); HGB 16.1 gm/dL (13.0-17.5); Lymphocytes # (A) 1.8 k/uL (1.0-4.8); Lymphocytes % (A) 26 %; MCH 29.1 pg (25.0-35.0); MCHC 32.6 g/dL (31.0-37.0); MCV 89.3 fL (80.0-100.0); Mean Platelet Volume 7.2; Monocytes # (A) 0.6 k/uL (0-1.0); Monocytes % (A) 8 %; Neutrophils # (A) 4.1 k/uL (1.3-7.7); Neutrophils % (A) 58 %; Platelet Count 200 k/uL (150-450); RBC 5.52 m/uL (4.30-5.90); RDW 13.7 % (11.5-15.5)
[2024-01-25 06:44] LABS: ALT 35 U/L (4-49); AST 38 U/L (17-59); African American GFR (CKD) 60 (>60 ml/min/1.73 sqM); Albumin 4.2 g/dL (3.5-5.0); Alkaline Phosphatase 41 U/L (38-126); Anion Gap 8 mmol/L; Blood Urea Nitrogen 19 mg/dL (9-20); Calcium 8.6 mg/dL (8.4-10.2); Carbon Dioxide 21 mmol/L (22-30); Chloride 109 mmol/L (98-107); Glucose 106 mg/dL (74-99); Non-African American GFR(CKD) 52 (>60 ml/min/1.73 sqM); Potassium 4.8 mmol/L (3.5-5.1); Sodium 138 mmol/L (137-145); Total Bilirubin 0.7 mg/dL (0.2-1.3); Total Protein 7.4 g/dL (6.3-8.2)
[2024-01-25] MEDS: LOSARTAN-HCTZ 50-12.5 MG 1 EACH TAB PO SCH (10:24)
[2024-01-25] MEDS: HEPARIN SODIUM,PORCINE 5,000 UNIT/ML 1 ML VIAL SQ SCH (10:24)
[2024-01-25] MEDS: CLOPIDOGREL 75 MG TAB PO STA (12:56)
--- NOTE | 2024-01-25 13:46 | P.PN ---
Subjective Progress Note Date: 01/25/24 patient 68-year-old gentleman with past medical history significant for hypertension who presented to the ER because of right-sided weakness. Patient stated that the symptoms started at 7 AM in the morning, patient noticed that his right arm and leg were weak, patient was having numbness of the right side. Patient was having a hard time finding words, there was no slurred speech. Patient felt as if his cognition was also affected. There was no jerking movement of any extremity. Patient was also complaining of loss of peripheral vision. Patient hard time gripping with his right hand. Some of the symptoms improved by the time patient came to the ER. Initial lab work done in the ER showed WBC 9.9, hemoglobin 15.4, platelet count 210, sodium 140, potassium 4, BUN 23, creatinine 1.54, glucose 117, EKG done in the ER showed heart rate of 73, no ST segment elevation or depression seen, no T-wave inversions seen. CT head done showed no acute intracranial process CTA head and neck done showed no significant stenosis, aneurysm or thrombus in the intracranial circulation Patient admitted to internal medicine service 01/24. Patient seen and examined. MRI brain done showed acute/subacute CVA involving the left thalamus. Complaining of feeling weak in the right hand more compared to yesterday. Neurological exam remains unchanged from yesterday. REVIEW OF SYSTEMS: CONSTITUTIONAL: No fever, no malaise,. CARDIOVASCULAR: No chest pain, no palpitations, no syncope. PULMONARY: No shortness of breath, no cough, GASTROINTESTINAL: No diarrhea, no nausea, no vomiting, no abdominal pain. NEUROLOGICAL: No headaches, no weakness, PHYSICAL EXAMINATION: GENERAL: The patient is alert and oriented x3, not in any acute distress. Well developed, well nourished. HEENT: Pupils are round and equally reacting to light. EOMI. No scleral icterus. No conjunctival pallor. Normocephalic, atraumatic. No pharyngeal erythema. No thyromegaly. CARDIOVASCULAR: S1 and S2 present. No murmurs, rubs, or gallops. PULMONARY: Chest is clear to auscultation, no wheezing or crackles. ABDOMEN: Soft, nontender, nondistended, normoactive bowel sounds. No palpable organomegaly. MUSCULOSKELETAL: No joint swelling or deformity. EXTREMITIES: No cyanosis, clubbing, or pedal edema. NEUROLOGICAL: Muscle strength is 4 x 5 in right upper extremity and 4 x 5 in right lower extremity, mostly 5 x 5 in left side. Cranial nerves II to 12 intact SKIN: No rashes. Assessment and plan Acute CVA Hypertension Monitor vital signs Monitor CBC Monitor CMP Continue telemetry monitoring MRI brain done showed acute/subacute CVA involving the left thalamus. Echo pending Continue aspirin, Plavix Resume Hyzaar Neurology following, recommend dual antiplatelet therapy Labs and medication were reviewed.. Continue same treatment. Continue with symptomatic treatment. Resume home medication. Monitor labs and vitals. DVT and GI prophylaxis. Further recommendations as per clinical course of the patient Dictation was produced using [employer] dictation software. please excuse any grammatical, word or spelling errors. Objective - Vital Signs Vital signs: Vital Signs Temp 98.3 F 01/25/24 12:05 Pulse 83 01/25/24 12:05 Resp 16 01/25/24 12:05 BP 152/80 01/25/24 12:05 Pulse Ox 98 01/25/24 12:05 FiO2 Intake & Output 01/24/24 01/25/24 01/25/24 18:59 06:59 18:59 Intake Total 10 260 260 Balance 10 260 260 Weight 92.986 kg 93.1 kg Intake: IV 10 20 10 Invasive Line 1 10 20 10 Oral 240 250 Other: Voiding Method Toilet Toilet # Voids 2 - Labs CBC & Chem 7: 01/25/24 06:03 01/25/24 06:03 Labs: Abnormal Lab Results - Last 24 Hours (Table) 01/25/24 Range/Units 06:03 Chloride 109 H (98-107) mmol/L Carbon Dioxide 21 L (22-30) mmol/L Creatinine 1.38 H (0.66-1.25) mg/dL Glucose 106 H (74-99) mg/dL
--- NOTE | 2024-01-25 17:41 | P.PN ---
Subjective Progress Note Date: 01/25/24 Patient was seen for a follow-up. Patient is sitting on the side of the bed. Patient notices that he has less control of the right arm. He feels some fogginess in the brain, not as sharp. He believes that right side feels more heavier. Objective - Vital Signs Vital signs: Vital Signs Temp 98.3 F 01/25/24 12:05 Pulse 83 01/25/24 12:05 Resp 16 01/25/24 12:05 BP 152/80 01/25/24 12:05 Pulse Ox 98 01/25/24 12:05 FiO2 Intake & Output 01/24/24 01/25/24 01/25/24 18:59 06:59 18:59 Intake Total 10 260 260 Balance 10 260 260 Weight 92.986 kg 93.1 kg Intake: IV 10 20 10 Invasive Line 1 10 20 10 Oral 240 250 Other: Voiding Method Toilet Toilet # Voids 2 - Exam Patient's mental status, speech and language functions are normal. Cranial nerves are normal. Sensation decreased over right side of the face. Rest of the cranial nerves normal. On muscle strength testing, patient has right pronator drift about [address] [place] is normal in the arms and legs. Sensory decreased in the right arm and right leg as compared to the left. Patient has ataxia for right upper limb. - Labs CBC & Chem 7: 01/25/24 06:03 01/25/24 06:03 Labs: Abnormal Lab Results - Last 24 Hours (Table) 01/25/24 Range/Units 06:03 Chloride 109 H (98-107) mmol/L Carbon Dioxide 21 L (22-30) mmol/L Creatinine 1.38 H (0.66-1.25) mg/dL Glucose 106 H (74-99) mg/dL Assessment and Plan Assessment: * Acute ischemic stroke left thalamic region and left medial temporal lobe. Event appears embolic in nature. Rule out cardiac source. * Hypertension, uncontrolled * Prediabetes with A1c 6.0 * X tobacco use Plan: Patient has presented with acute ischemic stroke. Patient's current NIH stroke scale is 3. Patient was not a candidate for TNK, because patient came outside the window for thrombolysis. No LVO. MRI of the brain without contrast, revealed acute/subacute CVA involving the left thalamus. On my review, there is another area of acute ischemic infarction in the left medial temporal lobe. Discussed with the radiologist, agree with the findings, and placed an addendum in the report. 2-D echo with bubble study to rule out PFO, completed, results pending CTA head and neck showed: No flow-limiting stenosis bilateral carotid bifurcations. Normal variation in the [place]. Fasting a.m. lipid panel with cholesterol 147, LDL 73, HDL 43 and triglycerides 149. As symptoms have got worse, we will increase Lipitor to 40 mg daily. Target LDL <70. Hemoglobin A1c 6.0 Permissive hypertension for next 24-48 hours. Treat only if blood pressure > 22 0/120. Patient was not taking any antiplatelet medication at home. Patient started on aspirin 325 mg in the ER. We will also add Plavix 75 mg daily for 21 days. Patient's symptoms have got worse, we will l give an extra load of Plavix 150 mg x 1 dose Neuro checks every 2 hours. Telemetry monitoring rule out any arrhythmia Patient may need 30 day event monitoring rule out PAF. PT, OT, speech therapy DVT prophylaxis: Heparin 5000 units subcu every 8 hours Discussed with PCP.
[2024-01-25] MEDS: SODIUM CHLORIDE 0.9% 1,000 ML IV SCH (18:04)
[2024-01-25] MEDS: ATORVASTATIN 40 MG TAB PO SCH (19:52)
[2024-01-26 09:12] VITALS: RESP 16
[2024-01-26] MEDS: CHOLECALCIFEROL 25 MCG (1000 IU) TABLET PO SCH (09:37)
[2024-01-26 11:49] VITALS: TEMP 98.5
--- NOTE | 2024-01-26 13:16 | P.PN ---
Subjective Progress Note Date: 01/26/24 patient 68-year-old gentleman with past medical history significant for hypertension who presented to the ER because of right-sided weakness. Patient stated that the symptoms started at 7 AM in the morning, patient noticed that his right arm and leg were weak, patient was having numbness of the right side. Patient was having a hard time finding words, there was no slurred speech. Patient felt as if his cognition was also affected. There was no jerking movement of any extremity. Patient was also complaining of loss of peripheral vision. Patient hard time gripping with his right hand. Some of the symptoms improved by the time patient came to the ER. Initial lab work done in the ER showed WBC 9.9, hemoglobin 15.4, platelet count 210, sodium 140, potassium 4, BUN 23, creatinine 1.54, glucose 117, EKG done in the ER showed heart rate of 73, no ST segment elevation or depression seen, no T-wave inversions seen. CT head done showed no acute intracranial process CTA head and neck done showed no significant stenosis, aneurysm or thrombus in the intracranial circulation Patient admitted to internal medicine service 01/24. Patient seen and examined. MRI brain done showed acute/subacute CVA involving the left thalamus. Complaining of feeling weak in the right hand more compared to yesterday. Neurological exam remains unchanged from yesterday. 01/25. Patient seen and examined. Patient states that today he feels back to normal, patient has been ambulating without any difficulty. REVIEW OF SYSTEMS: CONSTITUTIONAL: No fever, no malaise,. CARDIOVASCULAR: No chest pain, no palpitations, no syncope. PULMONARY: No shortness of breath, no cough, GASTROINTESTINAL: No diarrhea, no nausea, no vomiting, no abdominal pain. NEUROLOGICAL: No headaches, no weakness, PHYSICAL EXAMINATION: GENERAL: The patient is alert and oriented x3, not in any acute distress. Well developed, well nourished. HEENT: Pupils are round and equally reacting to light. EOMI. No scleral icterus. No conjunctival pallor. Normocephalic, atraumatic. No pharyngeal erythema. No thyromegaly. CARDIOVASCULAR: S1 and S2 present. No murmurs, rubs, or gallops. PULMONARY: Chest is clear to auscultation, no wheezing or crackles. ABDOMEN: Soft, nontender, nondistended, normoactive bowel sounds. No palpable organomegaly. MUSCULOSKELETAL: No joint swelling or deformity. EXTREMITIES: No cyanosis, clubbing, or pedal edema. NEUROLOGICAL: Muscle strength is 4 x 5 in right upper extremity and 4 x 5 in right lower extremity, mostly 5 x 5 in left side. Cranial nerves II to 12 intact SKIN: No rashes. Assessment and plan Acute CVA Hypertension Monitor vital signs Monitor CBC Monitor CMP Continue telemetry monitoring MRI brain done showed acute/subacute CVA involving the left thalamus. Echo pending Continue aspirin, Plavix Neurology following, recommend dual antiplatelet therapy Possible discharge later in the day if cleared by neurology Labs and medication were reviewed.. Continue same treatment. Continue with symptomatic treatment. Resume home medication. Monitor labs and vitals. DVT and GI prophylaxis. Further recommendations as per clinical course of the patient Dictation was produced using [employer] dictation software. please excuse any grammatical, word or spelling errors. Objective - Vital Signs Vital signs: Vital Signs Temp 98.5 F 01/26/24 11:47 Pulse 79 01/26/24 11:47 Resp 16 01/26/24 11:47 BP 156/80 01/26/24 11:47 Pulse Ox 97 01/26/24 11:47 FiO2 Intake & Output 01/25/24 01/26/24 01/26/24 19:59 06:59 18:59 Intake Total 150 Balance 150 Weight Intake: IV Invasive Line 1 Oral 150 Other: Voiding Method Toilet # Voids - Labs CBC & Chem 7: 01/25/24 06:03 01/25/24 06:03
--- NOTE | 2024-01-26 15:24 | CA ---
Transthoracic Echo Report Name: Richard Marinelli Age: 68 Gender: M : 1955 Exam Date: 01/25/2024 16:01 Exam Location: [facility] Ht (in): 70 Wt (lb): 205 Ordering Physician: Romario Cifuentes MD Attending/Referring Phys: Concert Singer Malorie Carroll RDCS Procedure CPT: Indications: CVA Cardiac Hx: Technical Quality: Fair Contrast 1: Agitated Saline Total Dose (mL): Contrast 2: Total Dose (mL): MEASUREMENTS (Male / Female) Normal Values 2D ECHO LV Diastolic Diameter PLAX 4.4 cm 4.2 - 5.9 / 3.9 - 5.3 cm LV Systolic Diameter PLAX 2.3 cm IVS Diastolic Thickness 1.3 cm 0.6 - 1.0 / 0.6 - 0.9 cm LVPW Diastolic Thickness 1.2 cm 0.6 - 1.0 / 0.6 - 0.9 cm LV Relative Wall Thickness 0.6 RV Internal Dim ED PLAX 1.8 cm LA Systolic Diameter LX 3.5 cm 3.0 - 4.0 / 2.7 - 3.8 cm LV Diastolic Volume MOD BP 53.6 cm??? 67 - 155 / 56 - 104 cm??? LV Systolic Volume MOD BP 16.2 cm??? 22 - 58 / 19 - 49 cm??? LV Ejection Fraction MOD BP 69.8 % >= 55 % LV Cardiac Index MOD BP 1624.1 cm???/min???m??? LV Diastolic Volume MOD 4C 65.5 cm??? LV Systolic Volume MOD 4C 21.6 cm??? LV Ejection Fraction MOD 4C 67.0 % LV Cardiac Index MOD 4C 1906.7 cm???/min???m??? LV Diastolic Length 4C 7.8 cm LV Systolic Length 4C 6.2 cm LV Diastolic Volume MOD 2C 40.6 cm??? LV Systolic Volume MOD 2C 11.3 cm??? LV Ejection Fraction MOD 2C 72.2 % LV Cardiac Index MOD 2C 1272.2 cm???/min???m??? LV Diastolic Length 2C 7.2 cm LV Systolic Length 2C 5.7 cm LA Volume 56.9 cm??? 18 - 58 / 22 - 52 cm??? LA Volume Index 26.3 cm???/m??? 16 - 28 cm???/m??? M-MODE Aortic Root Diameter MM 3.9 cm LA Systolic Diameter MM 2.7 cm LA Ao Ratio MM 0.7 AV Cusp Separation MM 1.7 cm DOPPLER AV Peak Velocity 177.4 cm/s AV Peak Gradient 12.6 mmHg AI Peak Velocity 437.6 cm/s AI Peak Gradient 76.6 mmHg AI Pressure Half Time 677.7 ms MV Area PHT 4.1 cm??? Mitral E Point Velocity 69.5 cm/s Mitral A Point Velocity 128.8 cm/s Mitral E to A Ratio 0.5 MV Deceleration Time 186.2 ms TR Peak Velocity 243.5 cm/s TR Peak Gradient 23.7 mmHg FINDINGS Left Ventricle Left ventricular ejection fraction is estimated at 60-65 %. Mildly increased septal wall thickness. Left ventricular cavity size normal. Mildly increased left ventricular wall thickness. Normal left ventricular systolic function with no obvious regional wall motion abnormalities. Right Ventricle Normal right ventricular size and function. Right ventricular systolic pressure within normal limits. Right Atrium Normal right atrial size. Negative agitated saline bubble study for right to left shunt. Left Atrium Mild left atrial dilatation. Mitral Valve Structurally normal mitral valve. Mild mitral annular calcification. Trace mitral regurgitation. Aortic Valve Trileaflet aortic valve. No aortic stenosis. Mild aortic regurgitation. Tricuspid Valve Structurally normal tricuspid valve. Trace to mild tricuspid regurgitation. No tricuspid stenosis. Pulmonic Valve Structurally normal pulmonic valve. Trace pulmonic regurgitation. No pulmonic stenosis. Pericardium No pericardial or pleural effusion. Aorta Mild aortic dilatation at the level of the sinuses of valsalva (root). CONCLUSIONS Normal biventricular systolic function Mild aortic insufficiency Previewed by: Dr. Ady Laguna MD (Electronically Signed) Final Date: 26 January 2024 15:23
[2024-01-26 15:46] VITALS: PULSE 73
[2024-01-26] MEDS: LOSARTAN-HCTZ 50-12.5 MG 1 EACH TAB PO SCH (15:52)
[2024-01-26 18:39] VITALS: BP 179/93
--- NOTE | 2024-01-27 02:15 | P.PN ---
Subjective Progress Note Date: 01/26/24 Patient was seen for a follow-up. Patient states he is feeling much better. His right-sided numbness has improved. It is not as intense. Denies any new focal symptoms. No headache. He just wants to go home. Objective - Vital Signs Vital signs: Vital Signs Temp 98.5 F 01/26/24 11:47 Pulse 79 01/26/24 11:47 Resp 16 01/26/24 11:47 BP 156/80 01/26/24 11:47 Pulse Ox 97 01/26/24 11:47 FiO2 Intake & Output 01/25/24 01/26/24 01/26/24 19:59 06:59 18:59 Intake Total 265 Balance 265 Weight Intake: IV Invasive Line 1 Oral 265 Other: Voiding Method Toilet # Voids - Exam Patient's mental status, speech and language functions are normal. Cranial nerves are normal. Sensation decreased over right side of the face. Rest of the cranial nerves normal. On muscle strength testing, patient has right pronation, but no drift. Strength is normal in the arms and legs. Sensory decreased in the right arm and right leg as compared to the left. Patient has ataxia for right upper limb. Patient walks with slight right spastic gait. Patient slightly circumduct's right leg. He was walking in the hallway fairly stable. He appears somewhat impulsive. Instructed him to be careful when turning to prevent losing balance. - Labs CBC & Chem 7: 01/25/24 06:03 01/25/24 06:03 Assessment and Plan Assessment: * Acute ischemic stroke left thalamic region and left medial temporal lobe. Event appears embolic in nature. Rule out cardiac source. * Hypertension, uncontrolled * Prediabetes with A1c 6.0 * X tobacco use Plan: Patient has presented with acute ischemic stroke. Patient's current NIH stroke scale is 3. Patient was not a candidate for TNK, because patient came outside the window for thrombolysis. No LVO. MRI of the brain without contrast, revealed acute/subacute CVA involving the left thalamus. On my review, there is another area of acute ischemic infarction in the left medial temporal lobe. Discussed with the radiologist, agree with the findings, and placed an addendum in the report. 2-D echo with bubble study revealed normal biventricular systolic function with LVEF 60-65%. Mildly increased septal wall thickness. No obvious regional wall motion abnormalities. Normal right atrial size. Negative agitated saline bubble study for [id number] shunt. Mild left atrial dilation. No embolic source. CTA head and neck showed: No flow-limiting stenosis bilateral carotid bifurcations. Normal variation in the [place]. Fasting a.m. lipid panel with cholesterol 147, LDL 73, HDL 43 and triglycerides 149. As symptoms have got worse, we will increase Lipitor to 40 mg daily. Target LDL <70. Hemoglobin A1c 6.0 Optimize control of blood pressure. Patient was not taking any antiplatelet medication at home. Patient started on aspirin 325 mg in the ER. We will also add Plavix 75 mg daily for 21 days. Telemetry monitoring rule out any arrhythmia Patient may need 30 day event monitoring rule out PAF. PT, OT, speech therapy DVT prophylaxis: Heparin 5000 units subcu every 8 hours Discussed with PCP. Patient wants to go home desperately. Patient has been resumed on his home blood pressure medication. Patient to keep watch of his blood pressure, as he does have home PT apparatus monitor. He was instructed to return to the hospital, if his blood pressure goes above 200/110. He was recommended to follow-up with his primary physician in one to 2 days. I wanted to keep him for 24 hours, but patient wants to go home. He understands the risks.
== END 2024-01-26 18:34 | disposition home or self-care (01) | DRG 66 ==
LOC: EC 18:45 → SUPCPDRO 18:45 → 3SCARD 20:54
PROVIDERS: ADMIT Hospitalist; ATTEND Hospitalist
DX: I63.9 Cerebral infarction, unspecified (principal); H54.61 Unqualified visual loss, right eye, normal vision left eye; I10 Essential (primary) hypertension; R73.03 Prediabetes; Z87.891 Personal history of nicotine dependence; K21.9 Gastro-esophageal reflux disease without esophagitis; R29.703 NIHSS score 3; R26.81 Unsteadiness on feet; Z88.1 Allergy status to other antibiotic agents; Z79.890 Hormone replacement therapy; Z79.02 Long term (current) use of antithrombotics/antiplatelets; Z79.82 Long term (current) use of aspirin; Z79.899 Other long term (current) drug therapy
CPT/HCPCS: 36415; 70450; 70496; 70498; 70551; 80053; 80061; 83036; 84443; 84484; 85025; 85610; 85730; 93005; 93306; 99285